=== PATIENT | male | born 1980 | race African-American/Black ===

== ENCOUNTER 2021-11-14 09:09 | Emergency (ER) | payer MEDICAID ==
[~2021-11-14] VITALS: Ht 165.1 cm; Wt 63.5 kg
--- NOTE | 2021-11-14 09:27 | NUR ---
Patient to ER bed 8 to gown for evaluation. Side rails up. Report given to CHHAYA ARTHUR.
--- NOTE | 2021-11-14 09:30 | NUR ---
MD BARRON AT FOR MSE
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
--- NOTE | 2021-11-14 10:01 | NUR ---
Radiology at bedside examining patient.
[2021-11-14] MEDS ORDERED: LIDOCAINE 1% 10 MG/ML, 20 ML MDV INJ ONE (10:45)
--- NOTE | 2021-11-14 11:37 | NUR ---
MD procedure to right hand pinky finger. Pt tolerated well. Splint applied with distal pulses present. Pt aaox4 skin intact. denies pain.
[2021-11-14 11:54] VITALS: BP_SYST 133
--- NOTE | 2021-11-14 11:56 | NUR ---
Patient given written and verbal discharge instructions and verbalizes understanding. ER MD discussed with patient the results and treatment provided. Patient in stable condition. ID arm band removed. Opportunity for questions provided and answered. Medication side effect fact sheet provided.
== END 2021-11-14 11:56 | disposition home or self-care (01) ==
LOC: SED 09:09
DX: S56.408A Unspecified injury of extensor muscle, fascia and tendon of left little finger at forearm level, initial encounter (principal); Y04.0XXA Assault by unarmed brawl or fight, initial encounter; Y93.89 Activity, other specified; Y92.89 Other specified places as the place of occurrence of the external cause; Y99.8 Other external cause status
CPT/HCPCS: 29130; 73130; 96372; 99283; J2001

== ENCOUNTER 2022-05-22 22:51 | Emergency (ER) | payer MEDICAID ==
[~2022-05-22] VITALS: Ht 165.1 cm; Wt 72.6 kg
[2022-05-22 23:19] VITALS: BP_SYST 118
--- NOTE | 2022-05-22 23:24 | NUR ---
Patient triaged and placed in waiting room. VSS and patient appears in no acute distress at this time. Accompanied by , awaiting available bed, and MD notified of need for MSE.
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
--- NOTE | 2022-05-23 04:10 | NUR ---
ER examining patient in the triage room.
[2022-05-23] MEDS ORDERED: MORPHINE SULFATE 10 MG/ML VIAL IM ONE (06:00)
[2022-05-23] MEDS ORDERED: DIAZEPAM 5 MG TABLET (VALIUM) PO ONE (06:00)
--- NOTE | 2022-05-23 06:00 | NUR ---
Patient to [facility] chair to [facility] for evaluation. Side rails up. Report given to Mary Jane GRAF.
[2022-05-23] MEDS ORDERED: HYDR-3921 PO (06:22)
[2022-05-23] MEDS ORDERED: IBUP-1969 PO (06:22)
[2022-05-23] MEDS ORDERED: METH-634 PO (06:22)
[2022-05-23] MEDS ORDERED: MORPHINE 4 MG INJ. 4 MG/ML VIAL IM ONE (06:30)
--- NOTE | 2022-05-23 06:30 | NUR ---
PT AMBULATED TO RESTROOM WITH STEADY GAIT. PT NOW BACK IN BED, SAFETY PRECAUTIONS IN PLACE.
[2022-05-23 06:56] VITALS: BP_SYST 107
--- NOTE | 2022-05-23 06:56 | NUR ---
Patient given written and verbal discharge instructions and verbalizes understanding. ER DR. HENRY discussed with patient the results and treatment provided. Patient in stable condition. ID arm band removed. Rx of norco, motrin, and robaxin given. Patient educated on pain management and to follow up with PMD. Pain Scale 0. Opportunity for questions provided and answered. Medication side effect fact sheet provided.
== END 2022-05-23 06:56 | disposition home or self-care (01) ==
LOC: SED 22:51
DX: M62.830 Muscle spasm of back (principal); M54.6 Pain in thoracic spine; Z79.899 Other long term (current) drug therapy
CPT/HCPCS: 99283; 72072; 96372; J2270